=== PATIENT | male | born 1995 | race African-American/Black ===

== ENCOUNTER 2020-01-06 14:56 | Observation (INO) ==
[2020-01-06 15:31] LABS: Basophils % 0.4 % (0.0-0.8); Eosinophils # 0.4 10*3/uL (0.0-0.87); Hematocrit 26.5 VOL% (42.0-52.0); Hemoglobin 8.5 GM/DL (14.0-18.0); Immature Granulocytes % 0.2 %; Immature Granulocytes Absolute 0.01 #; Lymphocytes # 1.6 10*3/uL (1.4-4.0); Lymphocytes % 30.4 % (21.2-54.2); Mean Corpuscular HGB Conc 32.1 GM/DL (32-36); Mean Corpuscular Volume 80.3 FL (87-102); Mean Platelet Volume 11.5 FL (9.6-12.0); Monocytes % 6.3 % (1.7-12.7); Neutrophils % 55.7 % (38.7-73.9); Platelet Count 149 T/CUMM (130-400); Red Cell Distribution Width 16.1 % (9.3-17.3); White Blood Count 5.3 T/CUMM (4-12)
[2020-01-06 15:51] LABS: PT Patient Result 10.9 SECS (9.8-11.9); Partial Thromboplastin Time 32.4 SECS (23.9-33.8)
[2020-01-06 15:53] LABS: Alanine Aminotransferase < 9 U/L (16-61); Albumin 3.1 G/DL (3.4-5.0); Alkaline Phosphatase 173 U/L (45-117); Aspartate Amino Transferase 15 U/L (0-37); Blood Urea Nitrogen 8 MG/DL (7-18); Calcium 8.7 MG/DL (8.5-10.1); Carbon Dioxide 26 MMOL/L (21-32); Estimated Glom Filtration Rate 17 ML/MIN; Glucose 84 MG/DL (74-106); Osmolality,Calculated 275.4 MOS/KG (273-304); Potassium 3.4 MMOL/L (3.5-5.1); Sodium 140 MMOL/L (136-145); Total Protein 6.6 G/DL (6.4-8.3)
[2020-01-06] MEDS ORDERED: cloNIDine 0.1 MG TABLET ONE (17:08)
[2020-01-06] MEDS ORDERED: cloNIDine 0.1 MG TABLET PO STA (17:14)
[2020-01-06] MEDS ORDERED: NICOTINE 21 MG/24 HR PATCH TRANSDERM PRN (20:15)
[2020-01-06] MEDS ORDERED: GLUCAGON 1 MG VIAL IM PRN (20:15)
[2020-01-06] MEDS ORDERED: diphenhydrAMINE CAP 25 MG CAPSULE PO PRN (20:15)
[2020-01-06] MEDS ORDERED: guaiFENesin/DM ER 600-30 MG TABLET PO PRN (20:15)
[2020-01-06] MEDS ORDERED: DEXTROSE 50% 25 GM/50 ML VIAL IV PRN (20:15)
[2020-01-06] MEDS ORDERED: hydrALAZINE 20 MG/1 ML VIAL IV PRN (20:15)
[2020-01-06] MEDS ORDERED: ONDANSETRON 4 MG/2 ML VIAL IV PRN (20:15)
[2020-01-06] MEDS ORDERED: ACETAMINOPHEN 325 MG TABLET PO PRN (20:15)
[2020-01-06] MEDS ORDERED: ALBUTEROL/IPRATROPIUM 3 ML NEB RESP TX ONE (22:49)
[2020-01-07] MEDS: ALBUTEROL/IPRATROPIUM 3 ML NEB RESP TX SCH ×2 (01:35→07:11)
[2020-01-07] MEDS ORDERED: CALCIUM ACETATE 667 MG CAPSULE PO SCH (08:00)
[2020-01-07 08:06] VITALS: BP 160/105
[2020-01-07] MEDS ORDERED: MULTIVITAMIN (BEROCCA) TABLET PO SCH (09:00)
[2020-01-07] MEDS ORDERED: OLMESARTAN 20 MG TABLET PO SCH (09:00)
[2020-01-07] MEDS ORDERED: METOPROLOL SUCCINATE XL 50 MG TABLET PO SCH (21:00)
[2020-01-07] MEDS ORDERED: CALCIUM CARBONATE CHEW 500 MG TABLET PO SCH (21:00)
== END 2020-01-07 11:12 | disposition home or self-care (01) ==
LOC: N.EDINP 14:56 → N.ED 14:56 → N.TELES 20:50
PROVIDERS: ADMIT Emergency Medicine; ATTEND Emergency Medicine